=== PATIENT | male | born 2000 | race Hispanic/Latino ===

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

== ENCOUNTER 2022-02-20 03:33 | Observation (INO) | payer OTHER, SELFPAY ==
[2022-02-20 05:55] LABS: PTT 25.4 sec (22.9-36.1)
[2022-02-20 06:00] LABS: Hemoglobin 16.5 g/dL (14.0-18.0); Mean Corpuscular HGB CONC 34.6 g/dL (32.0-36.0); Mean Corpuscular Hemoglobin 31.6 pg (27.0-31.0); Mean Corpuscular Volume 91.4 fL (78.0-98.0); Mean Platelet Volume 8.1 fL (7.4-10.4); Platelet Count 220 thou/uL (130-400); RBC Distribution Width 10.9 % (11.5-14.5); Red Blood Cell (RBC) Count 5.22 mill/uL (4.70-6.10)
[2022-02-20 06:03] LABS: ALT (SGPT) 124 U/L (8-55); AST (SGOT) 228 U/L (5-34); Acetaminophen Less than 10.0 mcg/mL (10.0-30.0); Albumin 4.8 g/dL (3.5-5.0); Alcohol 216 mg/dL (Less than 10); Alkaline Phosphatase 70 U/L (40-110); Anion Gap 13 mmol/L (10-20); BUN (Urea Nitrogen) 6 mg/dL (8.9-20.6); Bilirubin, Total 0.9 mg/dL (0.2-1.2); Calc. Creatinine Clearance 0 mL/min (70-130); Calcium 9.1 mg/dL (7.8-10.44); Carbon Dioxide 25 mmol/L (22-29); Chloride 107 mmol/L (98-107); Estimated GFR 128; Globulin 2.8 g/dL (2.4-3.5); Glucose 122 mg/dL (70-105); Potassium 3.4 mmol/L (3.5-5.1); Protein, Total 7.6 g/dL (6.0-8.3); Salicylate Less than 8.0 mg/dL (15.0-30.0); Sodium 142 mmol/L (136-145)
[2022-02-20 06:14] LABS: Band 10 % (5-11); Lymphocytes 2 % (21-51); MDiff Complete? YES; Monocytes 3 % (0-10); Neutrophil 85 % (42-75)
[2022-02-20] MEDS ORDERED: Ondansetron ODT 4 MG TAB PO PRN (06:25)
[2022-02-20] MEDS ORDERED: Dextrose 5% in Water 1,000 ML IV PRN (06:25)
[2022-02-20] MEDS ORDERED: Morphine 2 MG/ML VIAL SLOW IVP PRN (06:25)
[2022-02-20] MEDS ORDERED: TETANUS, DIPHTHERIA TOX,ADULT (TDVAX) 0.5 ML VIAL IM ONE (06:25)
[2022-02-20] MEDS ORDERED: Morphine 4 MG/ML VIAL SLOW IVP PRN ×2 (06:25→08:01)
[2022-02-20] MEDS ORDERED: Dextrose 50% Abboject 50 ML SYRINGE SLOW IVP PRN (06:25)
[2022-02-20] MEDS ORDERED: Cyclobenzaprine 10 MG TAB PO PRN (06:29)
[2022-02-20] MEDS ORDERED: traMADol HCl 50 MG TAB PO PRN (06:29)
[2022-02-20] MEDS ORDERED: Sodium Chloride 0.9% 1,000 ML IV SCH (06:30)
[2022-02-20] MEDS: Ondansetron PF 4 MG/2 ML Vial IVP PRN ×2 (07:56→14:14)
[2022-02-20 08:10] VITALS: BMI 29.0
[2022-02-20] MEDS ORDERED: FLU VACC QS2022-23(6MOS UP)/PF 60 MCG/0.5 ML SYRINGE IM ONE (08:15)
[2022-02-20] MEDS ORDERED: Potassium Chloride 20 MEQ TAB PO SCH (08:15)
[2022-02-20] MEDS: Famotidine 20 MG TAB PO SCH ×2 (09:43→21:19)
[2022-02-20] MEDS: Senokot S 8.6-50 MG TAB PO SCH ×2 (09:54→21:19)
[2022-02-20] MEDS: Polyethylene Glycol 3350 17 GM Packet PO SCH (09:54)
[2022-02-20] MEDS ORDERED: Iopamidol 370 76% 100 ML VIAL ONE (11:23)
[2022-02-20] MEDS: traMADol HCl 50 MG TAB PO SCH ×2 (11:44→17:50)
[2022-02-20] MEDS ORDERED: Acetaminophen 325 MG TAB PO SCH (12:00)
[2022-02-20 12:10] LABS: Bacteria/HPF None Seen HPF (None Seen); Bilirubin Negative (Negative); Blood, Urine 2+ (Negative); Clarity Clear (Clear); Glucose, Urine (Dipstick) Normal (Negative); Ketone, Urine Negative (Negative); Leukocyte Negative Leu/uL (Negative); Nitrite Negative (Negative); Protein, Urine (Dipstick) 20 mg/dL (Neg-Trace); RBC/HPF 21-50 HPF (0-3); Specific Gravity, Urine 1.048 (1.002-1.036); Squamous Epithelial 0-3 HPF (0-3); Urobilinogen Normal mg/dL (Less than 2)
[2022-02-20 12:15] LABS: Amphetamine Not Detected (NotDetected); Barbiturates Screen Not Detected (NotDetected); Benzodiazepine Screen Not Detected (NotDetected); Cocaine Metabolite Screen Not Detected (NotDetected); Methadone Not Detected (NotDetected); Methamphetamine Not Detected (NotDetected); Opiate Screen Not Detected (NotDetected); Oxycodone Screen Not Detected (NotDetected); Phencyclidine (PCP) Not Detected (NotDetected); THC/Cannabinoid Screen Not Detected (NotDetected); Tricyclic Screen Not Detected (NotDetected)
[2022-02-21] MEDS: traMADol HCl 50 MG TAB PO SCH ×4 (00:14→15:35)
[2022-02-21 06:13] LABS: #Eosinphils 0.2 thou/uL (0.0-0.7); #Lymphocytes 1.6 thou/uL (1.20-3.40); #Monocytes 0.9 thou/uL (0.11-0.59); %Basophils 0.3 % (0.0-1.0); %Lymphocytes 18.7 % (21.0-51.0); %Monocytes 10.6 % (0.0-10.0); %Neutrophils 68.4 % (42.0-75.0); Hemoglobin 15.4 g/dL (14.0-18.0); Mean Corpuscular HGB CONC 33.6 g/dL (32.0-36.0); Mean Corpuscular Hemoglobin 31.2 pg (27.0-31.0); Mean Corpuscular Volume 92.9 fL (78.0-98.0); Mean Platelet Volume 8.1 fL (7.4-10.4); Platelet Count 179 thou/uL (130-400); RBC Distribution Width 10.8 % (11.5-14.5); Red Blood Cell (RBC) Count 4.95 mill/uL (4.70-6.10); White Blood Cell (WBC) Count 8.7 thou/uL (4.8-10.8)
[2022-02-21 06:46] LABS: ALT (SGPT) 82 U/L (8-55); AST (SGOT) 71 U/L (5-34); Albumin 4.2 g/dL (3.5-5.0); Alkaline Phosphatase 57 U/L (40-110); Anion Gap 11 mmol/L (10-20); BUN (Urea Nitrogen) 8 mg/dL (8.9-20.6); Bilirubin, Total 2.1 mg/dL (0.2-1.2); Calc. Creatinine Clearance 172 mL/min (70-130); Calcium 9.4 mg/dL (7.8-10.44); Carbon Dioxide 28 mmol/L (22-29); Chloride 102 mmol/L (98-107); Estimated GFR 129; Globulin 2.6 g/dL (2.4-3.5); Glucose 88 mg/dL (70-105); Magnesium 1.9 mg/dL (1.6-2.6); Phosphorus 2.8 mg/dL (2.3-4.7); Potassium 3.9 mmol/L (3.5-5.1); Protein, Total 6.8 g/dL (6.0-8.3); Sodium 137 mmol/L (136-145)
[2022-02-21] MEDS: Polyethylene Glycol 3350 17 GM Packet PO SCH (10:15)
[2022-02-21] MEDS: Senokot S 8.6-50 MG TAB PO SCH (10:15)
[2022-02-21] MEDS: Famotidine 20 MG TAB PO SCH (10:18)
[2022-02-21 15:37] VITALS: BP 126/84; TEMP 97.9
== END 2022-02-21 15:45 | disposition home or self-care (01) ==
LOC: ERS 03:33 → INTOOBSV 05:25 → SURG A 05:25
PROVIDERS: ADMIT Surgery; ATTEND Surgery
DX: S22.31XA Fracture of one rib, right side, initial encounter for closed fracture (principal); S37.81 Injury of adrenal gland; F10.129 Alcohol abuse with intoxication, unspecified; S06.9X9A Unspecified intracranial injury with loss of consciousness of unspecified duration, initial encounter; S36.113A Laceration of liver, unspecified degree, initial encounter; S37.031A Laceration of right kidney, unspecified degree, initial encounter; S00.01XA Abrasion of scalp, initial encounter; S50.811A Abrasion of right forearm, initial encounter; R40.2412 Glasgow coma scale score 13-15, at arrival to emergency department; F17.210 Nicotine dependence, cigarettes, uncomplicated; V49.9XXA Car occupant (driver) (passenger) injured in unspecified traffic accident, initial encounter; Y92.410 Unspecified street and highway as the place of occurrence of the external cause; Y90.7 Blood alcohol level of 200-239 mg/100 ml
CPT/HCPCS: 36415; 70450; 71260; 72125; 74177; 80053; 80306; 80307; 81003; 81015; 83735; 84100; 85025; 85610; 85730; G0390; J2405; J7050; Q9967